=== PATIENT | male | born 1970 ===

== ENCOUNTER 2018-04-02 22:41 | Emergency (ER) | payer OTHER ==
[2018-04-02 22:41] VITALS: BMI 27.3
[2018-04-02 22:52] VITALS: BP 122/83; PULSE 80; RESP 16; TEMP 98.9; O2SAT 98
--- NOTE | 2018-04-02 23:00 | ED PDOC ---
Upper Extremity Pain/Injury Time Seen by Provider: 04/02/18 23:00 Chief Complaint (Nursing): Finger,Hand,&Wrist Chief Complaint (Provider): arm pain History Per: Patient Additional Complaint(s): 48 y/o right hand dominant male presents with persistent pain to right shoulder. Patient sustained injury to right shoulder on March 27 and was seen in this ED. X-rays were read as negative for fracture/dislocation. Patient still has persistent pain and states pain radiates up and down his arm. He took Advil prior to arrival which helped somewhat. No associated chest pain, shortness of breath or dyspnea on exertion. Patient has an appointment on Saturday with orthopedist but wanted to get checked out this evening as well. PMD: Dr. Boyer Past Medical History Reviewed: Historical Data, Nursing Documentation, Vital Signs Vital Signs: Last Vital Signs Temp 98.9 F 04/02/18 22:51 Pulse 80 04/02/18 22:51 Resp 16 04/02/18 22:51 BP 122/83 04/02/18 22:51 Pulse Ox 98 04/02/18 22:51 - Medical History PMH: No Chronic Diseases - Family History Family History: States: No Known Family Hx - Living Arrangements Living Arrangements: With Family - Social History Current smoker - smoking cessation education provided: No Alcohol: None Drugs: Denies - Home Medications Home Medications: Ambulatory Orders Medication Instructions Recorded Ibuprofen [Motrin Tab] 600 mg PO Q6 PRN #15 tab 03/27/18 Cyclobenzaprine [Cyclobenzaprine 10 mg PO TID PRN #20 tab 04/02/18 HCl] Naproxen [Naprosyn] 500 mg PO BID #20 tab 04/02/18 - Allergies Allergies/Adverse Reactions: Allergies Allergy/AdvReac Type Severity Reaction Status Date / Time No Known Allergies Allergy Verified 03/27/18 08:55 Review of Systems ROS Statement: Except As Marked, All Systems Reviewed And Found Negative Musculoskeletal: Positive for: Other (right shoulder pain) Physical Exam - Reviewed Nursing Documentation Reviewed: Yes Vital Signs Reviewed: Yes - Physical Exam Appears: Positive for: Well, Non-toxic, No Acute Distress Skin: Positive for: Normal Color. Negative for: Rash Eye Exam: Positive for: Normal appearance Neck: Positive for: Pain On Movement Of Neck Cardiovascular/Chest: Positive for: Regular Rate, Rhythm Respiratory: Positive for: Normal Breath Sounds Extremity: Positive for: Other (tenderness to right deltoid region with decreased range of motion of right shoulder, normal sensation to right upper extremity, strong right handgrip, no warmth, erythema or ecchymosis to shoulder region) Neurologic/Psych: Positive for: Alert, rn renal II-XII (grossly intact), Oriented. Negative for: Motor/Sensory Deficits, Aphasia, Facial Droop - ECG O2 Sat by Pulse Oximetry: 98 Pulse Ox Interpretation: Normal Medical Decision Making Medical Decision Makin48 y/o with right shoulder pain. Previous records reviewed, x-rays from March 27 demonstrate no acute fracture or dislocation. Plan: PO naprosyn PO flexeril Patient was given prescriptions for Naprosyn and Flexeril. Advised rest, ice and elevation. Patient has follow-up on Saturday with orthopedist. Patient has sling at home. Disposition - Clinical Impression Clinical Impression: Shoulder sprain - Patient ED Disposition Is Patient to be Admitted: No Counseled Patient/Family Regarding: Studies Performed, Diagnosis, Need For Followup, Rx Given - Disposition Referrals: Matt León MD [Staff Provider] - Disposition: Routine/Home Disposition Time: 23:25 Condition: STABLE Additional Instructions: Rest and ice affected area. Take rx meds as directed. Follow up as scheduled with orthopedist on Saturday. Prescriptions: Cyclobenzaprine [Cyclobenzaprine HCl] 10 mg PO TID PRN #20 tab PRN Reason: Muscle Spasm Naproxen [Naprosyn] 500 mg PO BID #20 tab Instructions: Shoulder Sprain (DC), Strengthening Your Upper Body, Table Stretches for the Shoulder Forms: [employer] (Kiswahili)
[2018-04-02] MEDS ORDERED: Naproxen 500 MG TAB PO STA (23:08)
[2018-04-02] MEDS ORDERED: Naproxen 500 MG TAB PO ONE (23:18)
== END 2018-04-02 23:36 | disposition home or self-care (01) ==
LOC: H.ER 22:41
DX: S43.401A Unspecified sprain of right shoulder joint, initial encounter (principal)